=== PATIENT | male | born 1995 | race Caucasian/White ===

== ENCOUNTER 2018-05-03 00:06 | Emergency (ER) | payer BC ==
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
[2018-05-03 01:25] LABS: VBG PH 7.32 (7.31-7.41)
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
[2018-05-03 02:04] VITALS: BP 143/88; PULSE 83; RESP 18; TEMP 97.9
== END 2018-05-03 02:04 | disposition home or self-care (01) ==
LOC: EC 00:06
DX: Z77.098 Contact with and (suspected) exposure to other hazardous, chiefly nonmedicinal, chemicals (principal)
CPT/HCPCS: 71046; 82375; 82803; 99283